=== PATIENT | female | born 1935 | race African-American/Black ===

== ENCOUNTER 2017-05-11 16:12 | Emergency (ER) | payer MEDICARE, OTHER ==
[2017-05-11 20:24] LABS: #Basophils 0.1 thou/uL (0.0-0.2); #Eosinphils 0.3 thou/uL (0.0-0.7); #Lymphocytes 3.3 thou/uL (1.20-3.40); #Monocytes 0.6 thou/uL (0.11-0.59); #Neutrophils 3.2 thou/uL (1.40-6.50); %Basophils 0.7 % (0.0-1.0); %Eosinophils 3.9 % (0.0-10.0); %Lymphocytes 44.5 % (21.0-51.0); %Monocytes 7.9 % (0.0-10.0); Hemoglobin 14.2 g/dL (12.0-16.0); Mean Corpuscular HGB CONC 34.3 g/dL (32.0-36.0); Mean Corpuscular Hemoglobin 31.2 pg (27.0-31.0); Mean Corpuscular Volume 91.2 fl (81.0-99.0); Mean Platelet Volume 7.1 fL (7.4-10.4); Platelet Count 190 thou/uL (130-400); RBC Distribution Width 11.9 % (11.5-14.5); Red Blood Cell (RBC) Count 4.55 mill/uL (4.20-5.40); White Blood Cell (WBC) Count 7.3 thou/uL (4.8-10.8)
[2017-05-11 20:45] LABS: ALT (SGPT) 22 U/L (8-55); AST (SGOT) 35 U/L (5-34); Albumin 3.8 g/dL (3.4-4.8); Alkaline Phosphatase 88 U/L (40-150); Anion Gap 11 mmol/L (10-20); BUN (Urea Nitrogen) 17 mg/dL (9.8-20.1); Bilirubin, Total 0.6 mg/dL (0.2-1.2); CK (CPK) 451 U/L (29-168); Calc. Creatinine Clearance 0 mL/min (70-130); Calcium 9.6 mg/dL (7.8-10.44); Carbon Dioxide 31 mmol/L (23-31); Chloride 98 mmol/L (98-107); Estimated GFR-MDRD 71; Globulin 3.9 g/dL (2.4-3.5); Glucose 99 mg/dL (83-110); Protein, Total 7.7 g/dL (6.0-8.3); Sodium 137 mmol/L (136-145)
[2017-05-11 20:49] LABS: CKMB 4.9 ng/mL (0-6.6); Troponin I Less than 0.010 ng/mL (< 0.028)
[2017-05-11] MEDS ORDERED: Potassium Chloride 20 MEQ TAB ONE (21:26)
--- NOTE | 2017-05-11 21:51 | CT ---
CT BRAIN WITHOUT CONTRAST: Comparison: 08-22-15 History: Hypotension at [facility]. Mild headache and nausea. Technique: Multiple contiguous axial images were obtained in a CT of the brain without contrast. FINDINGS: The brain is normal in morphology and attenuation without focal lesions or confluent areas of infarct ion. There is no of hydrocephalus, intracranial hemorrhage, or extraaxial fluid collection. The [place] rium and overlying soft tissues are unremarkable. Visualized paranasal sinuses and mastoid air cells are well aerated. IMPRESSION: No evidence of acute intracranial abnormality. POS: [facility]
[2017-05-11 22:10] LABS: Troponin I Less than 0.010 ng/mL (< 0.028)
== END 2017-05-11 22:42 | disposition home or self-care (01) ==
LOC: ERS 16:12
DX: I95.9 Hypotension, unspecified (principal); E78.5 Hyperlipidemia, unspecified; F32.9 Major depressive disorder, single episode, unspecified; F41.9 Anxiety disorder, unspecified; I10 Essential (primary) hypertension; G62.9 Polyneuropathy, unspecified; M19.90 Unspecified osteoarthritis, unspecified site
CPT/HCPCS: 36416; 70450; 80053; 82553; 83880; 84484; 85025; 93005

== ENCOUNTER 2017-06-18 09:52 | Outpatient (CLI) | payer MEDICARE | END 2017-06-18 09:53 | disposition home or self-care (01) | LOC: BICULT 09:52 | PROVIDERS: ATTEND Internal Medicine Gastroenterology | DX: K75.4 Autoimmune hepatitis (principal); K74.60 Unspecified cirrhosis of liver; R93.3 Abnormal findings on diagnostic imaging of other parts of digestive tract | CPT/HCPCS: 76705 ==

== ENCOUNTER 2017-12-24 09:57 | Outpatient (CLI) | payer MEDICARE | END 2017-12-24 09:58 | disposition home or self-care (01) | LOC: BICMAMMO 09:57 | PROVIDERS: ATTEND Family Medicine | DX: Z12.31 Encounter for screening mammogram for malignant neoplasm of breast (principal) | CPT/HCPCS: 77063; 77067 ==

== ENCOUNTER 2018-04-22 09:41 | Outpatient (CLI) | payer MEDICARE ==
--- NOTE | 2018-04-22 11:41 | ULT ---
ABDOMINAL ULTRASOUND: HISTORY: Hepatitis, cirrhosis. FINDINGS: Multiple longitudinal and transverse images of the abdomen are obtained using a multihertz curvilinea r transducer. Real-time, color flow, and spectral waveform Doppler analysis demonstrates the liver t o be unremarkable with no definite evidence of masses or lesions. Normal hepatopetal flow is seen. The gallbladder is unremarkable with no evidence of gallstones. The common bile duct is of normal si ze measuring 5.3 mm. No evidence of intrahepatic biliary dilatation is seen. The gallbladder wall w as not thickened. No evidence of pericholecystic fluid seen. The visualized portion of the pancreas is unremarkable. The spleen is unremarkable. The right kidney is visualized. The left kidney is not visualized on these images. If there is concern for renal pathology, correlate with renal sonography or have the patient return f or additional images of the kidneys. The spleen is unremarkable. Abdominal aorta and inferior vena cava are unremarkable. IMPRESSION: Nonvisualization of the left kidney and partial visualization of the right kidney. It may be worthwh ile to consider repeating additional images of the kidneys. The rest of the abdomen is unremarkable. Normal hepatopetal flow is seen. POS: [facility]
== END 2018-04-22 09:42 | disposition home or self-care (01) ==
LOC: BICULT 09:41
PROVIDERS: ATTEND Physician Assistant Medical
DX: K75.4 Autoimmune hepatitis (principal); I85.00 Esophageal varices without bleeding; K74.60 Unspecified cirrhosis of liver; R19.7 Diarrhea, unspecified
CPT/HCPCS: 76705

== ENCOUNTER 2018-11-03 07:54 | Outpatient (CLI) | payer MEDICARE ==
--- NOTE | 2018-11-03 08:50 | ULT ---
US Hepatic Doppler History: Hepatitis Comparison: None. Findings: Real-time grayscale, color, and spectral analysis of the liver and vessels was performed. The abdominal aorta is not well-seen. The hepatic echotexture is coarsened with nodular contour. Norm al directional flow the vessels. Gallbladder wall thickness is normal. Common bile duct is normal. Portal vein is patent with normal directional flow. Hepatic veins are patent with normal directional flow. No hepatic mass is appreciated. Spleen is not enlarged. Impression: 1. Hepatic cirrhosis without mass. 2. Normal directional vascular flow. 3. No significant splenomegaly to suggest portal hypertension.
== END 2018-11-03 07:55 | disposition home or self-care (01) ==
LOC: BICULT 07:54
PROVIDERS: ATTEND Physician Assistant Medical
DX: K74.60 Unspecified cirrhosis of liver (principal); K75.4 Autoimmune hepatitis; I85.00 Esophageal varices without bleeding; Z86.010 Personal history of colon polyps
CPT/HCPCS: 76705

== ENCOUNTER 2020-02-06 09:58 | Outpatient (CLI) | payer MEDICARE ==
--- NOTE | 2020-02-06 10:48 | ULT ---
Hepatic sonogram with duplex evaluation HISTORY: Autoimmune hepatitis. FINDINGS: Gallbladder has a normal appearance without stones visible. Common duct is 0.5 cm. Liver unremarkable without focal mass or intrahepatic biliary dilatation. No free fluid. Spleen is 9.5 cm length with a normal appearance. Good color and spectral Doppler flow within the hepatic and splenic arteries. Portal venous flow is t owards the liver. Hepatic venous flow towards the IVC. IMPRESSION : No findings of portal venous hypertension or other abnormalities.
== END 2020-02-06 09:59 | disposition home or self-care (01) ==
LOC: BICULT 09:58
PROVIDERS: ATTEND Physician Assistant Medical
DX: K75.4 Autoimmune hepatitis (principal); K74.69 Other cirrhosis of liver; E78.5 Hyperlipidemia, unspecified
CPT/HCPCS: 76705

== ENCOUNTER 2020-09-21 12:31 | Emergency (ER) | payer MEDICARE ==
[2020-09-21] MEDS ORDERED: Proparacaine 0.5% Opth 15 ML BOT ONE (15:21)
== END 2020-09-21 15:40 | disposition home or self-care (01) ==
LOC: ERS 12:31
DX: R51.9 Headache, unspecified (principal); E78.5 Hyperlipidemia, unspecified; E78.00 Pure hypercholesterolemia, unspecified; I10 Essential (primary) hypertension
CPT/HCPCS: 70450

== ENCOUNTER 2022-05-16 08:00 | Outpatient (CLI) | payer MEDICARE | END 2022-05-16 08:01 | disposition home or self-care (01) | LOC: ULT 08:00 | PROVIDERS: ATTEND Physician Assistant Medical | DX: K75.4 Autoimmune hepatitis (principal); K74.60 Unspecified cirrhosis of liver | CPT/HCPCS: 76705 ==

== ENCOUNTER 2022-10-28 07:44 | Outpatient (CLI) | payer MEDICARE ==
[2022-10-28] MEDS ORDERED: Iopamidol 370 76% 100 ML VIAL ONE (10:28)
== END 2022-10-28 07:45 | disposition home or self-care (01) ==
LOC: CT 07:44
PROVIDERS: ATTEND Physician Assistant Medical
DX: K75.4 Autoimmune hepatitis (principal); K74.60 Unspecified cirrhosis of liver; R63.4 Abnormal weight loss; K80.20 Calculus of gallbladder without cholecystitis without obstruction
CPT/HCPCS: 74177; 82565; Q9967

== ENCOUNTER 2023-06-23 09:49 | Outpatient (CLI) | payer MEDICARE | END 2023-06-23 09:50 | disposition home or self-care (01) | LOC: BICMAMMO 09:49 | PROVIDERS: ATTEND Family Medicine | DX: Z13.820 Encounter for screening for osteoporosis (principal); M85.852 Other specified disorders of bone density and structure, left thigh; Z78.0 Asymptomatic menopausal state | CPT/HCPCS: 77080 ==

== ENCOUNTER 2024-09-16 12:44 | Inpatient (IN) | payer MEDICARE ==
[~2024-09-16 12:44] MED LIST: Iopamidol-370 76% 500 ML MDV (1 ML CHARGE) ONE
[2024-09-16 13:56] LABS: #Basophils 0.08 10x3/uL (0.0-0.2); #Eosinophils 0.98 10x3/uL (0.0-0.7); #Monocytes 0.55 10x3/uL (0.11-0.59); #Neutrophils 1.82 10x3/uL (1.40-6.50); %Basophils 1.2 % (0.0-1.0); %Eosinophils 14.8 % (0.0-10.0); %Lymphocytes 48.0 % (21.0-51.0); %Monocytes 8.3 % (0.0-10.0); %Neutrophils 27.7 % (42.0-75.0); Hematocrit 33.0 % (36.0-47.0); Hemoglobin 11.0 g/dL (12.0-16.0); Mean Corpuscular Hemoglobin 31.5 pg (27.0-31.0); Mean Corpuscular Volume 94.6 fL (78.0-98.0); Platelet Count 162 10x3/uL (130-400); Red Blood Cell (RBC) Count 3.49 mill/uL (4.20-5.40); White Blood Cell (WBC) Count 6.60 10x3/uL (4.8-10.8)
[2024-09-16 14:12] LABS: ALT (SGPT) 24 U/L (Less than 34); AST (SGOT) 43 U/L (11-34); Albumin 3.6 g/dL (3.1-4.5); Alkaline Phosphatase 97 U/L (40-110); Anion Gap 13 mmol/L (10-20); BUN (Urea Nitrogen) 18 mg/dL (9.8-20.1); Bilirubin, Total 0.4 mg/dL (0.3-1.2); Calc. Creatinine Clearance 0 mL/min (70-130); Calcium 8.8 mg/dL (7.8-10.44); Carbon Dioxide 25 mmol/L (23-31); Chloride 106 mmol/L (98-107); Globulin 3.7 g/dL (2.4-3.5); Glucose 89 mg/dL (83-110); Potassium 4.0 mmol/L (3.5-5.1); Sodium 140 mmol/L (136-145)
[2024-09-16 14:49] LABS: Troponin I Less than 0.010 ng/mL (< 0.028)
[2024-09-16] MEDS ORDERED: diphenhydrAMINE 50 MG/ML VIAL ONE (15:30)
[2024-09-16] MEDS ORDERED: Famotidine/PF 20 mg/2ml Vial ONE (15:31)
[2024-09-16 20:20] LABS: Bacteria/HPF None Seen HPF (None Seen); CAUTI Indications for Culture Alt mental st,lethar; Glucose, Urine (Dipstick) Normal (Negative); Leukocyte Negative Leu/uL (Negative); Protein, Urine (Dipstick) Negative (Neg-Trace); RBC/HPF 0-3 HPF (0-3); Specific Gravity, Urine 1.024 (1.002-1.036); WBC/HPF None Seen HPF (0-3)
[2024-09-16 20:27] LABS: Urine Culture Reflex No No
[2024-09-16 20:58] VITALS: BMI 26.6
[2024-09-16 23:30] LABS: Magnesium 1.9 mg/dL (1.6-2.6)
[2024-09-16 23:42] LABS: Troponin I Less than 0.010 ng/mL (< 0.028)
[2024-09-17 07:58] LABS: #Basophils 0.05 10x3/uL (0.0-0.2); #Eosinophils 0.04 10x3/uL (0.0-0.7); #Monocytes 0.53 10x3/uL (0.11-0.59); #Neutrophils 3.99 10x3/uL (1.40-6.50); %Basophils 0.7 % (0.0-1.0); %Eosinophils 0.6 % (0.0-10.0); %Lymphocytes 34.5 % (21.0-51.0); %Monocytes 7.4 % (0.0-10.0); %Neutrophils 55.8 % (42.0-75.0); Hematocrit 37.5 % (36.0-47.0); Hemoglobin 12.7 g/dL (12.0-16.0); Mean Corpuscular Hemoglobin 30.9 pg (27.0-31.0); Mean Corpuscular Volume 91.2 fL (78.0-98.0); Platelet Count 131 10x3/uL (130-400); Red Blood Cell (RBC) Count 4.11 mill/uL (4.20-5.40); White Blood Cell (WBC) Count 7.14 10x3/uL (4.8-10.8)
[2024-09-17 08:12] LABS: ALT (SGPT) 24 U/L (Less than 34); AST (SGOT) 39 U/L (11-34); Albumin 3.7 g/dL (3.1-4.5); Alkaline Phosphatase 101 U/L (40-110); Anion Gap 14 mmol/L (10-20); BUN (Urea Nitrogen) 18 mg/dL (9.8-20.1); Bilirubin, Total 0.4 mg/dL (0.3-1.2); Calc. Creatinine Clearance 41 mL/min (70-130); Calcium 8.9 mg/dL (7.8-10.44); Carbon Dioxide 22 mmol/L (23-31); Chloride 107 mmol/L (98-107); Globulin 3.9 g/dL (2.4-3.5); Glucose 104 mg/dL (83-110); Potassium 4.5 mmol/L (3.5-5.1); Sodium 138 mmol/L (136-145)
[2024-09-17] MEDS: Enoxaparin 40 MG (0.4 mL) SYRINGE SC SCH (10:30)
[2024-09-17] MEDS: predniSONE 20 MG TAB PO SCH (10:30)
[2024-09-17] MEDS: Valsartan 80 MG TAB PO SCH (10:31)
[2024-09-17] MEDS: Aspirin 81 mg Enteric Coated Tablet PO SCH (10:31)
[2024-09-17] MEDS: Pantoprazole 40 MG DR.TAB PO SCH (10:31)
[2024-09-17] MEDS: Nadolol 40 MG TAB PO SCH (10:31)
[2024-09-17] MEDS: Sertraline 100 MG TAB PO SCH (10:32)
[2024-09-17] MEDS: Diclofenac 1% 50 GM TOPICAL GEL TP SCH (10:32)
[2024-09-17 13:35] VITALS: BMI 26.6
[2024-09-18 04:02] LABS: #Basophils 0.03 10x3/uL (0.0-0.2); #Eosinophils Less than 0.03 10x3/uL (0.0-0.7); #Monocytes 0.68 10x3/uL (0.11-0.59); #Neutrophils 5.99 10x3/uL (1.40-6.50); %Basophils 0.3 % (0.0-1.0); %Eosinophils 0.0 % (0.0-10.0); %Lymphocytes 28.9 % (21.0-51.0); %Monocytes 7.2 % (0.0-10.0); %Neutrophils 63.4 % (42.0-75.0); Hematocrit 33.1 % (36.0-47.0); Hemoglobin 11.4 g/dL (12.0-16.0); Mean Corpuscular Hemoglobin 31.1 pg (27.0-31.0); Mean Corpuscular Volume 90.4 fL (78.0-98.0); Platelet Count 153 10x3/uL (130-400); Red Blood Cell (RBC) Count 3.66 mill/uL (4.20-5.40); White Blood Cell (WBC) Count 9.45 10x3/uL (4.8-10.8)
[2024-09-18 04:19] LABS: ALT (SGPT) 19 U/L (Less than 34); AST (SGOT) 26 U/L (11-34); Albumin 3.3 g/dL (3.1-4.5); Alkaline Phosphatase 92 U/L (40-110); Anion Gap 11 mmol/L (10-20); BUN (Urea Nitrogen) 21 mg/dL (9.8-20.1); Bilirubin, Total 0.3 mg/dL (0.3-1.2); Calc. Creatinine Clearance 36 mL/min (70-130); Calcium 8.8 mg/dL (7.8-10.44); Carbon Dioxide 25 mmol/L (23-31); Chloride 108 mmol/L (98-107); Globulin 3.5 g/dL (2.4-3.5); Glucose 121 mg/dL (83-110); Potassium 3.8 mmol/L (3.5-5.1); Sodium 140 mmol/L (136-145)
[2024-09-18] MEDS: predniSONE 20 MG TAB PO SCH (10:08)
[2024-09-18] MEDS: Enoxaparin 30 MG (0.3 mL) SYRINGE SC SCH (10:08)
[2024-09-19 04:40] LABS: #Basophils Less than 0.03 10x3/uL (0.0-0.2); #Eosinophils Less than 0.03 10x3/uL (0.0-0.7); #Monocytes 0.41 10x3/uL (0.11-0.59); #Neutrophils 6.13 10x3/uL (1.40-6.50); %Basophils 0.1 % (0.0-1.0); %Eosinophils 0.0 % (0.0-10.0); %Lymphocytes 27.4 % (21.0-51.0); %Monocytes 4.5 % (0.0-10.0); %Neutrophils 67.7 % (42.0-75.0); Hematocrit 33.8 % (36.0-47.0); Hemoglobin 11.4 g/dL (12.0-16.0); Mean Corpuscular Hemoglobin 31.5 pg (27.0-31.0); Mean Corpuscular Volume 93.4 fL (78.0-98.0); Platelet Count 154 10x3/uL (130-400); Red Blood Cell (RBC) Count 3.62 mill/uL (4.20-5.40); White Blood Cell (WBC) Count 9.06 10x3/uL (4.8-10.8)
[2024-09-19 04:55] LABS: ALT (SGPT) 19 U/L (Less than 34); AST (SGOT) 25 U/L (11-34); Albumin 3.2 g/dL (3.1-4.5); Alkaline Phosphatase 82 U/L (40-110); Anion Gap 14 mmol/L (10-20); BUN (Urea Nitrogen) 26 mg/dL (9.8-20.1); Bilirubin, Total 0.3 mg/dL (0.3-1.2); Calc. Creatinine Clearance 41 mL/min (70-130); Calcium 8.6 mg/dL (7.8-10.44); Carbon Dioxide 25 mmol/L (23-31); Chloride 105 mmol/L (98-107); Globulin 3.4 g/dL (2.4-3.5); Glucose 120 mg/dL (83-110); Potassium 3.9 mmol/L (3.5-5.1); Sodium 140 mmol/L (136-145)
[2024-09-19] MEDS: Nadolol 40 MG TAB PO SCH (10:13)
[2024-09-19] MEDS: Acetaminophen 325 MG TAB PO PRN (10:16)
[2024-09-20 04:03] LABS: #Basophils Less than 0.03 10x3/uL (0.0-0.2); #Eosinophils Less than 0.03 10x3/uL (0.0-0.7); #Monocytes 0.67 10x3/uL (0.11-0.59); #Neutrophils 6.65 10x3/uL (1.40-6.50); %Basophils 0.2 % (0.0-1.0); %Eosinophils 0.1 % (0.0-10.0); %Lymphocytes 29.1 % (21.0-51.0); %Monocytes 6.4 % (0.0-10.0); %Neutrophils 63.9 % (42.0-75.0); Hematocrit 33.6 % (36.0-47.0); Hemoglobin 11.6 g/dL (12.0-16.0); Mean Corpuscular Hemoglobin 31.7 pg (27.0-31.0); Mean Corpuscular Volume 91.8 fL (78.0-98.0); Platelet Count 166 10x3/uL (130-400); Red Blood Cell (RBC) Count 3.66 mill/uL (4.20-5.40); White Blood Cell (WBC) Count 10.41 10x3/uL (4.8-10.8)
[2024-09-20 04:31] LABS: ALT (SGPT) 17 U/L (Less than 34); AST (SGOT) 22 U/L (11-34); Albumin 3.0 g/dL (3.1-4.5); Alkaline Phosphatase 85 U/L (40-110); Anion Gap 12 mmol/L (10-20); BUN (Urea Nitrogen) 25 mg/dL (9.8-20.1); Bilirubin, Total 0.2 mg/dL (0.3-1.2); Calc. Creatinine Clearance 33 mL/min (70-130); Calcium 8.6 mg/dL (7.8-10.44); Carbon Dioxide 25 mmol/L (23-31); Chloride 105 mmol/L (98-107); Globulin 3.5 g/dL (2.4-3.5); Glucose 122 mg/dL (83-110); Potassium 4.2 mmol/L (3.5-5.1); Sodium 138 mmol/L (136-145)
[2024-09-20] MEDS: Valsartan 80 MG TAB PO SCH (08:45)
[2024-09-20] MEDS: Enoxaparin 40 MG (0.4 mL) SYRINGE SC SCH (08:46)
[2024-09-21 03:59] LABS: #Basophils Less than 0.03 10x3/uL (0.0-0.2); #Eosinophils Less than 0.03 10x3/uL (0.0-0.7); #Monocytes 0.71 10x3/uL (0.11-0.59); #Neutrophils 6.59 10x3/uL (1.40-6.50); %Basophils 0.1 % (0.0-1.0); %Eosinophils 0.2 % (0.0-10.0); %Lymphocytes 36.1 % (21.0-51.0); %Monocytes 6.2 % (0.0-10.0); %Neutrophils 57.1 % (42.0-75.0); Hematocrit 34.1 % (36.0-47.0); Hemoglobin 11.6 g/dL (12.0-16.0); Mean Corpuscular Hemoglobin 31.3 pg (27.0-31.0); Mean Corpuscular Volume 91.9 fL (78.0-98.0); Platelet Count 161 10x3/uL (130-400); Red Blood Cell (RBC) Count 3.71 mill/uL (4.20-5.40); White Blood Cell (WBC) Count 11.54 10x3/uL (4.8-10.8)
[2024-09-21 04:16] LABS: ALT (SGPT) 20 U/L (Less than 34); AST (SGOT) 24 U/L (11-34); Albumin 3.0 g/dL (3.1-4.5); Alkaline Phosphatase 81 U/L (40-110); Anion Gap 11 mmol/L (10-20); BUN (Urea Nitrogen) 30 mg/dL (9.8-20.1); Bilirubin, Total 0.2 mg/dL (0.3-1.2); Calc. Creatinine Clearance 34 mL/min (70-130); Calcium 8.6 mg/dL (7.8-10.44); Carbon Dioxide 25 mmol/L (23-31); Chloride 106 mmol/L (98-107); Globulin 3.2 g/dL (2.4-3.5); Glucose 102 mg/dL (83-110); Potassium 4.0 mmol/L (3.5-5.1); Sodium 138 mmol/L (136-145)
[2024-09-21] MEDS: Enoxaparin 30 MG (0.3 mL) SYRINGE SC SCH (10:55)
[2024-09-22 07:36] LABS: #Basophils 0.05 10x3/uL (0.0-0.2); #Eosinophils 0.34 10x3/uL (0.0-0.7); #Monocytes 0.61 10x3/uL (0.11-0.59); #Neutrophils 3.02 10x3/uL (1.40-6.50); %Basophils 0.6 % (0.0-1.0); %Eosinophils 4.0 % (0.0-10.0); %Lymphocytes 51.7 % (21.0-51.0); %Monocytes 7.3 % (0.0-10.0); %Neutrophils 35.9 % (42.0-75.0); Hematocrit 35.5 % (36.0-47.0); Hemoglobin 11.9 g/dL (12.0-16.0); Mean Corpuscular Hemoglobin 31.0 pg (27.0-31.0); Mean Corpuscular Volume 92.4 fL (78.0-98.0); Platelet Count 168 10x3/uL (130-400); Red Blood Cell (RBC) Count 3.84 mill/uL (4.20-5.40); White Blood Cell (WBC) Count 8.40 10x3/uL (4.8-10.8)
[2024-09-22 07:52] LABS: ALT (SGPT) 23 U/L (Less than 34); AST (SGOT) 29 U/L (11-34); Albumin 2.8 g/dL (3.1-4.5); Alkaline Phosphatase 72 U/L (40-110); Anion Gap 11 mmol/L (10-20); BUN (Urea Nitrogen) 29 mg/dL (9.8-20.1); Bilirubin, Total 0.4 mg/dL (0.3-1.2); Calc. Creatinine Clearance 32 mL/min (70-130); Calcium 8.4 mg/dL (7.8-10.44); Carbon Dioxide 25 mmol/L (23-31); Chloride 105 mmol/L (98-107); Globulin 3.1 g/dL (2.4-3.5); Glucose 67 mg/dL (83-110); Potassium 4.3 mmol/L (3.5-5.1); Sodium 137 mmol/L (136-145)
[2024-09-22 11:35] VITALS: TEMP 98.2
[2024-09-22 16:47] VITALS: BP 73/47
== END 2024-09-22 16:00 | disposition home or self-care (01) | DRG 312 ==
LOC: ERS 12:44 → ERHOLD 19:17 → PCU 22:33 → OBSVTOIN 09-17 16:05
PROVIDERS: ADMIT Family Medicine; ATTEND Family Medicine
DX: I95.1 Orthostatic hypotension (principal); I49.3 Ventricular premature depolarization; E78.5 Hyperlipidemia, unspecified; G62.9 Polyneuropathy, unspecified; F41.9 Anxiety disorder, unspecified; I45.10 Unspecified right bundle-branch block; M06.89 Other specified rheumatoid arthritis, multiple sites; J45.909 Unspecified asthma, uncomplicated; K75.4 Autoimmune hepatitis; I12.9 Hypertensive chronic kidney disease with stage 1 through stage 4 chronic kidney disease, or unspecified chronic kidney disease; N18.32 Chronic kidney disease, stage 3b; K74.69 Other cirrhosis of liver; M47.817 Spondylosis without myelopathy or radiculopathy, lumbosacral region; E78.2 Mixed hyperlipidemia; E55.9 Vitamin D deficiency, unspecified; F32.9 Major depressive disorder, single episode, unspecified; D64.9 Anemia, unspecified; K21.00 Gastro-esophageal reflux disease with esophagitis, without bleeding; I44.1 Atrioventricular block, second degree; R60.0 Localized edema; R94.31 Abnormal electrocardiogram [ECG] [EKG]; Z79.899 Other long term (current) drug therapy; Z90.710 Acquired absence of both cervix and uterus; Z98.51 Tubal ligation status; Z88.5 Allergy status to narcotic agent; Z88.8 Allergy status to other drugs, medicaments and biological substances; Z91.041 Radiographic dye allergy status; Z88.0 Allergy status to penicillin; Z79.82 Long term (current) use of aspirin; Z79.51 Long term (current) use of inhaled steroids; Z79.890 Hormone replacement therapy
CPT/HCPCS: 36415; 70496; 70498; 71045; 80053; 81001; 83735; 83880; 84145; 84484; 85025; 93005; 93010; 93306; 94640; 96374; 96375; J1200; J1308; J1650; J2919; J7512; J7620; Q9967

== ENCOUNTER 2024-09-29 14:15 | Inpatient (IN) | payer MEDICARE ==
[2024-09-29 15:44] LABS: #Basophils 0.05 10x3/uL (0.0-0.2); #Eosinophils 0.54 10x3/uL (0.0-0.7); #Monocytes 0.58 10x3/uL (0.11-0.59); #Neutrophils 2.21 10x3/uL (1.40-6.50); %Basophils 0.8 % (0.0-1.0); %Eosinophils 9.0 % (0.0-10.0); %Lymphocytes 43.6 % (21.0-51.0); %Monocytes 9.6 % (0.0-10.0); %Neutrophils 36.7 % (42.0-75.0); Hematocrit 32.0 % (36.0-47.0); Hemoglobin 11.0 g/dL (12.0-16.0); Mean Corpuscular Hemoglobin 31.2 pg (27.0-31.0); Mean Corpuscular Volume 90.7 fL (78.0-98.0); Platelet Count 131 10x3/uL (130-400); Red Blood Cell (RBC) Count 3.53 mill/uL (4.20-5.40); White Blood Cell (WBC) Count 6.03 10x3/uL (4.8-10.8)
[2024-09-29 15:47] LABS: ALT (SGPT) 18 U/L (Less than 34); AST (SGOT) 25 U/L (11-34); Albumin 3.4 g/dL (3.1-4.5); Alkaline Phosphatase 78 U/L (40-110); Anion Gap 12 mmol/L (10-20); BUN (Urea Nitrogen) 15 mg/dL (9.8-20.1); Bilirubin, Total 0.4 mg/dL (0.3-1.2); Calc. Creatinine Clearance 0 mL/min (70-130); Calcium 8.8 mg/dL (7.8-10.44); Carbon Dioxide 24 mmol/L (23-31); Chloride 108 mmol/L (98-107); Globulin 3.4 g/dL (2.4-3.5); Glucose 98 mg/dL (83-110); Magnesium 1.8 mg/dL (1.6-2.6); Potassium 3.7 mmol/L (3.5-5.1); Sodium 140 mmol/L (136-145)
[2024-09-29 18:54] LABS: Iron 59 ug/dL (50-170); Iron Binding Capacity, Total 204 mcg/dL (265-497)
[2024-09-29 22:50] VITALS: BMI 26.9
[2024-09-30] MEDS: Enoxaparin 40 MG (0.4 mL) SYRINGE SC SCH (08:48)
[2024-09-30 14:22] VITALS: BMI 26.9
[2024-10-01 04:36] LABS: #Basophils 0.03 10x3/uL (0.0-0.2); #Eosinophils 0.66 10x3/uL (0.0-0.7); #Monocytes 0.62 10x3/uL (0.11-0.59); #Neutrophils 2.72 10x3/uL (1.40-6.50); %Basophils 0.4 % (0.0-1.0); %Eosinophils 9.8 % (0.0-10.0); %Lymphocytes 39.8 % (21.0-51.0); %Monocytes 9.2 % (0.0-10.0); %Neutrophils 40.5 % (42.0-75.0); Hematocrit 30.5 % (36.0-47.0); Hemoglobin 10.4 g/dL (12.0-16.0); Mean Corpuscular Hemoglobin 31.1 pg (27.0-31.0); Mean Corpuscular Volume 91.3 fL (78.0-98.0); Platelet Count 124 10x3/uL (130-400); Red Blood Cell (RBC) Count 3.34 mill/uL (4.20-5.40); White Blood Cell (WBC) Count 6.73 10x3/uL (4.8-10.8)
[2024-10-01 04:54] LABS: ALT (SGPT) 14 U/L (Less than 34); AST (SGOT) 20 U/L (11-34); Albumin 2.6 g/dL (3.1-4.5); Alkaline Phosphatase 64 U/L (40-110); Anion Gap 10 mmol/L (10-20); BUN (Urea Nitrogen) 12 mg/dL (9.8-20.1); Bilirubin, Total 0.4 mg/dL (0.3-1.2); Calc. Creatinine Clearance 46 mL/min (70-130); Calcium 8.0 mg/dL (7.8-10.44); Carbon Dioxide 25 mmol/L (23-31); Chloride 108 mmol/L (98-107); Globulin 2.8 g/dL (2.4-3.5); Glucose 89 mg/dL (83-110); Potassium 3.5 mmol/L (3.5-5.1); Sodium 139 mmol/L (136-145)
[2024-10-01] MEDS: Aspirin 81 mg Enteric Coated Tablet PO SCH (08:55)
[2024-10-01] MEDS: Cholecalciferol 1,000 UNITS (25 MCG) TAB PO SCH (08:55)
[2024-10-01] MEDS: Pantoprazole 40 MG DR.TAB PO SCH (08:55)
[2024-10-01 17:48] VITALS: BP 139/64; TEMP 98.9
== END 2024-10-01 18:00 | disposition home health service (06) | DRG 312 ==
LOC: ERS 14:15 → 2NO 16:53 → ERS 18:15 → OBSVTOIN 09-30 16:36
PROVIDERS: ADMIT Student in an Organized Health Care Education/Training Program; ATTEND Student in an Organized Health Care Education/Training Program
DX: I95.1 Orthostatic hypotension (principal); I13.0 Hypertensive heart and chronic kidney disease with heart failure and stage 1 through stage 4 chronic kidney disease, or unspecified chronic kidney disease; I50.32 Chronic diastolic (congestive) heart failure; I44.0 Atrioventricular block, first degree; I45.10 Unspecified right bundle-branch block; R00.1 Bradycardia, unspecified; N18.32 Chronic kidney disease, stage 3b; J45.20 Mild intermittent asthma, uncomplicated; E78.2 Mixed hyperlipidemia; F41.9 Anxiety disorder, unspecified; F32.9 Major depressive disorder, single episode, unspecified; M47.812 Spondylosis without myelopathy or radiculopathy, cervical region; E55.9 Vitamin D deficiency, unspecified; K75.4 Autoimmune hepatitis; K21.9 Gastro-esophageal reflux disease without esophagitis; M15.9 Polyosteoarthritis, unspecified; M47.817 Spondylosis without myelopathy or radiculopathy, lumbosacral region; Z88.8 Allergy status to other drugs, medicaments and biological substances; Z88.0 Allergy status to penicillin; Z79.899 Other long term (current) drug therapy
CPT/HCPCS: 36415; 71045; 80053; 82306; 82728; 83540; 83550; 83735; 83880; 84466; 84484; 85025; 85379; 93005; 94760; 96372; G0378; J1650; J7120

== ENCOUNTER 2024-10-27 13:55 | Observation (INO) | payer MEDICARE ==
[2024-10-27 14:44] LABS: Hematocrit 33.7 % (36.0-47.0); Hemoglobin 11.6 g/dL (12.0-16.0); Mean Corpuscular Hemoglobin 30.8 pg (27.0-31.0); Mean Corpuscular Volume 89.4 fL (78.0-98.0); Platelet Count 134 10x3/uL (130-400); Red Blood Cell (RBC) Count 3.77 mill/uL (4.20-5.40); White Blood Cell (WBC) Count 8.14 10x3/uL (4.8-10.8)
[2024-10-27 14:47] LABS: ALT (SGPT) 15 U/L (Less than 34); AST (SGOT) 31 U/L (11-34); Albumin 3.6 g/dL (3.1-4.5); Alkaline Phosphatase 87 U/L (40-110); Anion Gap 11 mmol/L (10-20); BUN (Urea Nitrogen) 6 mg/dL (9.8-20.1); Bilirubin, Total 0.6 mg/dL (0.3-1.2); Calc. Creatinine Clearance 0 mL/min (70-130); Calcium 9.5 mg/dL (7.8-10.44); Carbon Dioxide 27 mmol/L (23-31); Chloride 110 mmol/L (98-107); Globulin 3.4 g/dL (2.4-3.5); Glucose 109 mg/dL (83-110); Potassium 3.4 mmol/L (3.5-5.1); Sodium 145 mmol/L (136-145)
[2024-10-27] MEDS ORDERED: Furosemide 40 MG (4 mL) VIAL ONE (15:07)
[2024-10-27 15:08] LABS: Platelet Adequacy Comment Platelets Normal; RBC Morphology Within Normal Limits; Smudge Cells 7.0 %
[2024-10-27] MEDS ORDERED: hydrALAZINE 20 MG/ML VIAL ONE (16:32)
[2024-10-27] MEDS ORDERED: Albuterol 2.5 MG (3 mL) NEB ONE ×2 (16:32→18:23)
[2024-10-27] MEDS ORDERED: Magnesium 2 GM/50 ML BAG (IN WATER) ONE (18:24)
[2024-10-27] MEDS ORDERED: Melatonin 3 MG TAB PO PRN (20:18)
[2024-10-27] MEDS ORDERED: Acetaminophen 325 MG TAB PO PRN (20:18)
[2024-10-27] MEDS ORDERED: Albuterol 2.5 MG (3 mL) NEB NEB PRN (20:27)
[2024-10-27 20:39] VITALS: BMI 25.2
[2024-10-28 05:59] LABS: #Basophils Less than 0.03 10x3/uL (0.0-0.2); #Eosinophils 0.03 10x3/uL (0.0-0.7); #Monocytes 0.63 10x3/uL (0.11-0.59); #Neutrophils 7.04 10x3/uL (1.40-6.50); %Basophils 0.2 % (0.0-1.0); %Eosinophils 0.3 % (0.0-10.0); %Lymphocytes 13.0 % (21.0-51.0); %Monocytes 7.1 % (0.0-10.0); %Neutrophils 79.0 % (42.0-75.0); Hematocrit 33.7 % (36.0-47.0); Hemoglobin 11.6 g/dL (12.0-16.0); Mean Corpuscular Hemoglobin 30.6 pg (27.0-31.0); Mean Corpuscular Volume 88.9 fL (78.0-98.0); Platelet Count 139 10x3/uL (130-400); Red Blood Cell (RBC) Count 3.79 mill/uL (4.20-5.40); White Blood Cell (WBC) Count 8.92 10x3/uL (4.8-10.8)
[2024-10-28 06:14] LABS: ALT (SGPT) 13 U/L (Less than 34); AST (SGOT) 31 U/L (11-34); Albumin 3.2 g/dL (3.1-4.5); Alkaline Phosphatase 76 U/L (40-110); Anion Gap 12 mmol/L (10-20); BUN (Urea Nitrogen) 10 mg/dL (9.8-20.1); Bilirubin, Total 0.5 mg/dL (0.3-1.2); Calc. Creatinine Clearance 49 mL/min (70-130); Calcium 9.1 mg/dL (7.8-10.44); Carbon Dioxide 28 mmol/L (23-31); Chloride 106 mmol/L (98-107); Globulin 3.2 g/dL (2.4-3.5); Glucose 150 mg/dL (83-110); Potassium 3.4 mmol/L (3.5-5.1); Sodium 143 mmol/L (136-145)
[2024-10-28] MEDS: Albuterol 2.5 MG (3 mL) NEB NEB SCH ×2 (07:04→12:37)
[2024-10-28] MEDS: Enoxaparin 40 MG (0.4 mL) SYRINGE SC SCH (08:24)
[2024-10-28] MEDS: Multivitamin W/ Minerals 1 TAB PO SCH (08:25)
[2024-10-28] MEDS: Sertraline 100 MG TAB PO SCH (08:25)
[2024-10-28] MEDS: Pantoprazole 40 MG DR.TAB PO SCH (08:25)
[2024-10-28] MEDS: predniSONE 20 MG TAB PO SCH (08:25)
[2024-10-28] MEDS: Aspirin 81 mg Enteric Coated Tablet PO SCH (08:25)
[2024-10-28] MEDS: Cholecalciferol 1,000 UNITS (25 MCG) TAB PO SCH (08:25)
[2024-10-28] MEDS: Diclofenac 1% 50 GM TOPICAL GEL TP SCH (08:26)
[2024-10-28] MEDS: Furosemide 40 MG (4 mL) VIAL SLOW IVP SCH (11:48)
[2024-10-28 12:05] LABS: Magnesium 2.0 mg/dL (1.6-2.6)
[2024-10-28 16:42] VITALS: BMI 25.2
[2024-10-28 19:00] VITALS: BP 151/82; TEMP 98.2
== END 2024-10-28 19:12 | disposition home or self-care (01) ==
LOC: ERS 13:55 → T4-B 19:17
PROVIDERS: ADMIT Student in an Organized Health Care Education/Training Program; ATTEND Student in an Organized Health Care Education/Training Program
DX: J96.01 Acute respiratory failure with hypoxia (principal); J45.901 Unspecified asthma with (acute) exacerbation; I16.0 Hypertensive urgency; D64.9 Anemia, unspecified; I10 Essential (primary) hypertension; E78.5 Hyperlipidemia, unspecified; Z79.51 Long term (current) use of inhaled steroids; Z79.82 Long term (current) use of aspirin; Z79.899 Other long term (current) drug therapy; Z91.041 Radiographic dye allergy status; Z88.5 Allergy status to narcotic agent; Z88.0 Allergy status to penicillin
CPT/HCPCS: 71045; 80053 ×2; 83735; 83880; 84100; 84484; 85025 ×2; 87426; 93005; 94640 ×3; 94760; 94799; 96365; 96375; 99285; J0360; J1650; J1940 ×2; J2919; J3475; 36415; 96372; 96376; G0378; J7512; J7611; J7620